=== PATIENT | female | born 2000 | race Caucasian/White ===

== ENCOUNTER 2021-10-19 10:34 | Emergency (ER) | payer OTHER, SELFPAY ==
--- NOTE | ~2021-10-19 | CT_ITS ---
EXAMINATION: CT abdomen pelvis w con DATE: 10/19/2021 12:08 INDICATION: Upper abdominal pain following endoscopy, colonoscopy and biopsy on 10/17/2021. TECHNIQUE: Computed tomography (CT) of the abdomen and pelvis was performed with 100 CC Omnipaque 300 intravenous contrast. Automated exposure control and iterative reconstruction technique were employe d. Exam dose: 176.53 mGy-cm total exam DLP. COMPARISON: None. FINDINGS: No consolidation at the lung bases. Normal heart size. No pericardial or pleural effusion. The gallbladder is contracted. No hepatic, splenic, pancreatic, and adrenal or renal space-occupying mass lesion is evident. No bile duct or pancreatic duct dilatation. No urinary tract calculus or hydroureteronephrosis. 2 cm right ovarian cyst. The uterus, adnexal areas and urinary bladder are otherwise unremarkable. No bowel obstruction or intraperitoneal free air. Normal caliber of the abdominal aorta. No intraperitoneal or retroperitoneal or pelvic mass lesion or adenopathy or ascites. Included skeletal structures are unremarkable. IMPRESSION: 2 cm right ovarian cyst No bowel obstruction or intraperitoneal free air Reviewed, dictated and finalized at [facility]. Reviewed, dictated and finalized at [facility].
[2021-10-19 10:37] VITALS: BP 113/80; PULSE 112; RESP 16; TEMP 37; O2SAT 98
[2021-10-19 11:35] LABS: Basophils Percent Auto 0.5 % (0.2-1.2); Eosinophils Absolute Auto 0.1 K/mm3 (0-0.3); Eosinophils Percent Auto 0.8 % (0-4.4); Hematocrit 44.2 % (37.0-47.0); Hemoglobin 14.9 g/dL (12.0-15.0); Immature Granulocyte Absolute 0.02 K/mm3 (0.00-0.031); Immature Granulocyte Percent A 0.3 % (0-0.5); Lymphocytes Absolute Auto 2.26 K/mm3 (0.9-3.2); Lymphocytes Percent Auto 30.3 % (18.3-44.2); Mean Corpuscular HGB Conc 33.7 g/dl (32-36); Mean Corpuscular Hemoglobin 31.4 pg (26-34); Mean Corpuscular Volume 93.2 fl (80-100); Mean Platelet Volume 9.6 fl (7.4-10.4); Monocytes Absolute Auto 0.6 K/mm3 (0.1-0.6); Monocytes Percent Auto 7.4 % (2.6-8.5); Neutrophils Absolute Auto 4.5 K/mm3 (1.3-6.7); Neutrophils Percent Auto 60.7 % (45.5-73.1); Platelet Count Result 256 k/mm3 (150-375); Red Blood Count 4.74 M/mm3 (4.2-5.4); Red Cell Distribution Width 12.6 % (11.5-14.5); White Blood Count 7.5 K/mm3 (4.5-10.0)
[2021-10-19 11:36] LABS: Appearance Urine Clear (Clear); Bilirubin Urine Negative (Negative); Blood Urine 2+ (Negative); Color Urine Yellow (Yellow); Glucose Urine UA Negative (Negative); Ketones Urine Negative (Negative); Leukocyte Esterase Ur Negative LEU/UL (Negative); Nitrate Urine Negative (Negative); Protein Urine Negative (Negative); Specific Grav Ur 1.015 (1.001-1.035); Urobilinogen Urine 0.2 mg/dL (<2.0)
[2021-10-19 11:41] LABS: Mucus Urine Rare /lpf; RBC Urine 0-2 /hpf (0-2); Squamous Epithelial Cell Urine Rare /hpf (Few)
[2021-10-19 11:42] LABS: Add Urine Microscopic? YES
--- NOTE | 2021-10-19 11:46 | ED.ABDPAIN ---
HPI - Abdominal Pain General Chief Complaint: Abdominal Pain Stated Complaint: Pain and nausea after biopsy Wednesday Time Seen by Provider: 10/19/21 11:15 History of Present Illness HPI narrative: Patient is a 21-year-old female with a history of ulcerative colitis, autoimmune hepatitis, who presents for evaluation of left upper quadrant abdominal pain past 2 days. Patient states that she had a routine annual endoscopy and colonoscopy with biopsy of stomach and ileum 2 days ago, which did not show any acute findings, awaiting for pathology reports. She states that her abdominal pain developed shortly afterwards, is present in her left upper quadrant, and is intermittent in nature. Her appetite has been normal, and she is eaten a full meal since the procedure. She has not had a bowel movement since the procedure. Denies nausea or vomiting, fevers, urinary changes. She does take 5 mg prednisone every other day for autoimmune hepatitis, but states that her GI specialist weaned her down to 2.5 mg every other day 2 days ago. She has not taken her steroid today. Patient obtains annual endoscopies for surveillance of her UC. Related Data Allergies Allergy/AdvReac Type Severity Reaction Status Date / Time venom-honey bee Allergy Unknown Unknown Verified 10/19/21 11:24 Review of Systems Review of Systems: Gen.: Denies fevers or chills Eyes: Denies eye pain or visual change ENT: Denies congestion Respiratory: Denies shortness of breath or cough CV: Denies chest pain or palpitations GI: Reports left upper quadrant abdominal pain. Denies nausea, emesis or diarrhea : denies burning, urgency, frequency or hematuria Musculoskeletal: Denies back pain or muscle pain Neuro: Denies numbness, tingling, weakness or focal weakness Skin: Denies rash Except as documented, all other systems reviewed and negative All systems reviewed & are unremarkable except as noted in HPI and below Exam Narrative: APPEARANCE: No acute distress, nontoxic, resting in bed, thin EYES: EOMI HEENT: Normocephalic, atraumatic, OMM RESPIRATORY: No respiratory distress Clear to auscultation bilaterally with no rhonchi wheezing or rales. CARDIOVASCULAR: Regular rate and rhythm without murmurs rubs or gallops. ABDOMINAL: Tender in the left upper quadrant. Soft, nondistended, no rebound or guarding MUSCULOSKELETAl: Moves all extremities. No clubbing, cyanosis or edema. NEURO: Awake and alert. Following commands, speech normal, no focal deficits SKIN: Warm, dry. No rashes lesions or abrasions PSYCHIATRIC: Normal affect/mood Course Vital Signs Vital signs: Vital Signs Temperature 98.6 F 10/19/21 10:37 Pulse Rate 112 H 10/19/21 10:37 Respiratory Rate 16 10/19/21 10:37 Blood Pressure 113/80 10/19/21 10:37 Pulse Oximetry 98 10/19/21 10:37 Temperature 98.6 F 10/19/21 10:37 Pulse Rate 74 10/19/21 14:15 Respiratory Rate 16 10/19/21 14:15 Blood Pressure 122/74 10/19/21 14:15 Pulse Oximetry 99 10/19/21 14:15 MDM - Abdominal Pain MDM Narrative Medical decision making narrative: 21-year-old female here with left upper quadrant pain after upper/lower endoscopy x 2 days ago. Vss; initially tachycardic, likely due to pain, resolved in ED stay. Tender in LUQ. Labs unremarkable; CT scan with evidence of ovarian cyst but no bowel perforation or obstruction. Pain improved after IV pepcid and 5 mg prednisone (previous home dose); patient ready to go home. Low suspicion for UC flare as patient states she has reportedly never had abdominal pain with flares in the past, and she is not having any stool changes. Spoke with patient's GI specialist who performed the endoscopy [facility], who agrees with plan for discharge; states this possibly is GERD. Advised patient get in contact tomorrow with her GI specialist, discussed strict return precautions with patient and she voiced understanding. Lab Data Result diagrams: 10/19/21 11:26 10/19/21 11:26
[2021-10-19 11:49] LABS: Alanine Aminotransferase 32 U/L (6-35); Albumin Level 4.7 g/dL (3.5-5.1); Alkaline Phosphatase 83 U/L (38-126); Anion Gap 9 mmol/L (8-16); Aspartate Amino Transferase 31 U/L (14-36); Bilirubin,Total 0.3 mg/dL (0.2-1.3); Blood Urea Nitrogen 7 mg/dL (7-17); Carbon Dioxide 23 mmol/L (22-30); Chloride 109 mmol/L (98-107); Estimated CRCL calculation 97 ml/min; Estimated Glomerular Filt Rate > 60; Glucose 99 mg/dL (65-110); Lipase 100 U/L (23-300); Potassium 3.8 mmol/L (3.4-5.0); Sodium 141 mmol/L (137-145)
[2021-10-19] MEDS: FAMOTIDINE 20 MG/2 ML VIAL IV PUSH (12:27)
[2021-10-19] MEDS: predniSONE 5 MG TABLET PO (13:17)
[2021-10-19 14:15] VITALS: BP 122/74; PULSE 74; RESP 16; O2SAT 99
== END 2021-10-19 14:39 | disposition home or self-care (01) ==
PROVIDERS: Emergency Provider Emergency Medicine; PCP Family Medicine
DX: R10.12 Left upper quadrant pain (principal); N83.201 Unspecified ovarian cyst, right side
CPT/HCPCS: 36415; 74177; 80053; 81001; 81025; 83690; 85025; 96374; 99284; J7512; Q9967

== ENCOUNTER 2022-01-03 14:48 | Emergency (ER) | payer OTHER, SELFPAY | END 2022-01-03 15:50 | disposition left against medical advice (07) | PROVIDERS: Emergency Provider Internal Medicine Hematology & Oncology; PCP Family Medicine | DX: Z53.21 Procedure and treatment not carried out due to patient leaving prior to being seen by health care provider (principal) | CPT/HCPCS: 99199 ==

== ENCOUNTER 2022-03-24 10:38 | Emergency (ER) | payer OTHER, SELFPAY ==
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
--- NOTE | ~2022-03-24 | CT_ITS ---
EXAMINATION: CT brain wo con INDICATION: Headache COMPARISON: None TECHNIQUE: Standard unenhanced head CT. The dose-length product (DLP) was 1059.33 mGy-cm. The mA was adjusted according to patient size. Iterative reconstruction technique was employed. FINDINGS: Motion artifact limits evaluation of the posterior fossa. There is no intracranial hemorrha ge, acute infarction, or abnormal mass lesion. The ventricles are normal. There is no abnormal mass e ffect or midline shift. The hathaway-white matter differentiation is normal. The basal cisterns are paten t. The orbits are normal. The paranasal sinuses, mastoids and calvarium are normal. IMPRESSION: 1. No acute intracranial abnormality. Reviewed, dictated and finalized at [facility].
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
[2022-03-24 11:04] VITALS: BP 162/78; PULSE 121; RESP 18; TEMP 36.7; O2SAT 99
[2022-03-24 11:29] VITALS: BP 109/72; PULSE 81; RESP 16; O2SAT 100
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
[2022-03-24] MEDS: ACETAMINOPHEN 325 MG TABLET 650 MG PO (13:21)
== END 2022-03-24 13:32 | disposition home or self-care (01) ==
PROVIDERS: Emergency Provider Emergency Medicine; PCP Family Medicine
DX: S16.1XXA Strain of muscle, fascia and tendon at neck level, initial encounter (principal); S09.90XA Unspecified injury of head, initial encounter; J43.9 Emphysema, unspecified; V49.40XA Driver injured in collision with unspecified motor vehicles in traffic accident, initial encounter
CPT/HCPCS: 70450; 72125; 72128; 73502; 81025; 99284; A9270

== ENCOUNTER 2023-12-14 09:45 | Emergency (ER) | payer OTHER, SELFPAY ==
--- NOTE | ~2023-12-14 | CT_ITS ---
CT abdomen pelvis w con Ordering provider: Andrews Bernstein APRN History: . upper abd. pain, hx of ulcerative colitis . Comparison: October 19, 2021 Technique: CT abdomen with IV and without oral contrast. Radiation reduction technique utilized. DLP is 180.92 mGy. 100 mL Omnipaque 350 was given IV. Findings: VISUALIZED LOWER CHEST: Normal. UPPER ABDOMINAL ORGANS: Liver: Normal parenchyma. Minimal periportal edema or slight dilatation of the intrahepatic ducts. Gallbladder: Thickened wall of the bladder with no stones. Evaluation for cholecystitis advised. Spleen: Normal. Stomach/duodenum: Normal. Pancreas: Normal. Adrenals: Normal. Kidneys: Normal. Urinary bladder: Underfilled. Uterus: Normal. right ovarian cyst measuring 2.3. Prominent left ovary . VISUALIZED BOWEL AND MESENTERY: No evidence of active ulcerative colitis seen. Minimal thickening in the descending colon and transverse colon wall is seen. No Evidence of diverticulitis. The bowel is o therwise normal. No free air or free fluid. No mesenteric lymphadenopathy. RETROPERITONEUM: Normal aorta. No retroperitoneal lymphadenopathy. MUSCULOSKELETAL: The superficial soft tissues are normal. Normal spine. IMPRESSION: Minimal intrahepatic biliary dilatation with no definite dilatation of the CBD. Edema in the periport al area is not excluded. Clinical correlation advised. Slightly thickened wall of the gallbladder which may indicate cholecystitis. Clinical evaluation advi sed. No evidence of active ulcerative colitis with slight thickening of the wall of the transverse and maine cending colon. Right ovarian cyst. Slightly prominent left ovary Reviewed, dictated and finalized at [facility]. IMPRESSION: Minimal intrahepatic biliary dilatation with no definite dilatation of the CBD. Edema in the periportal area is not excluded. Clinical correlation advised. Slightly thickened wall of the gallbladder which may indicate cholecystitis. Cl inical evaluation advised. No evidence of active ulcerative colitis with slight thickening of the wall of the transverse and descending colon. Right ovarian cyst. Slightly prominent left ovary
[2023-12-14 09:48] VITALS: BP 130/85; PULSE 128; RESP 20; TEMP 36.6; O2SAT 99
[2023-12-14] MEDS: SODIUM CHLORIDE 0.9% IV 1,000 ML 999 ML IV CONT (12:08)
[2023-12-14 12:23] LABS: Basophils Absolute Auto 0.1 K/mm3 (0.0-0.1); Basophils Percent Auto 0.5 % (0.2-1.2); Eosinophils Percent Auto 0.2 % (0-4.4); Hematocrit 41.8 % (37.0-47.0); Hemoglobin 14.5 g/dL (12.0-15.0); Immature Granulocyte Absolute 0.02 K/mm3 (0.00-0.031); Immature Granulocyte Percent A 0.2 % (0-0.5); Lymphocytes Absolute Auto 2.54 K/mm3 (0.9-3.2); Lymphocytes Percent Auto 27.1 % (18.3-44.2); Mean Corpuscular HGB Conc 34.7 g/dl (32-36); Mean Corpuscular Hemoglobin 32.1 pg (26-34); Mean Corpuscular Volume 92.5 fl (80-100); Mean Platelet Volume 9.9 fl (7.4-10.4); Monocytes Absolute Auto 0.8 K/mm3 (0.1-0.6); Monocytes Percent Auto 8.4 % (2.6-8.5); Neutrophils Percent Auto 63.6 % (45.5-73.1); Platelet Count Result 284 k/mm3 (150-375); Red Blood Count 4.52 M/mm3 (4.2-5.4); Red Cell Distribution Width 12.4 % (11.5-14.5); White Blood Count 9.4 K/mm3 (4.5-10.0)
--- NOTE | 2023-12-14 12:25 | ED.ABDPAIN ---
HPI - Abdominal Pain General Chief Complaint: Abdominal Pain Stated Complaint: abd pain Time Seen by Provider: 12/14/23 10:32 History of Present Illness HPI narrative: 21-year-old female with a history of Crohn's disease presents to the emergency room for evaluation of. For 3 days. Patient states he had onset of symptoms, develops nausea of multiple episodes of vomiting. Patient states that she saw of scant amounts of bright red blood in her emesis. Patient also reports dark blood in her stool, which is common with her Crohn's disease. Patient states she is able to maintain of food and fluids at this time. Denies back pain, denies fev Related Data Allergies Allergy/AdvReac Type Severity Reaction Status Date / Time venom-honey bee Allergy Unknown Unknown Verified 12/14/23 11:40 Review of Systems Review of Systems: ROS unremarkable except for n PMFSH Past Medical History Medical History History of hepatitis Social History Social History Smoking status: Never smoker Exam Narrative: GENERAL: Well-appearing, well-nourished, no physical limitations, and in no acute distress. HEAD: Normocephalic, atraumatic. EYES: Conjunctivae normal, PERRLA and EOMI. CHEST: Clear to auscultation. No respiratory distress. No wheezes rales or rhonchi. HEART: Regular rate and rhythm. No murmur heard. Normal peripheral pulses. ABDOMEN: Soft, periumbilical tenderness, nondistended, normal active bowel sounds. BACK: No CVA tenderness EXTREMITIES: Normal range of motion. No edema. No clubbing or cyanosis SKIN: Warm, dry, no rash. No noted wounds NEURO: No focal deficits. Alert and oriented x3. MAEW. CN's II-XI intact bilaterally, normal gait PSYCH: Cooperative. Normal mood and affect. Course Vital Signs Vital signs: Vital Signs Temperature 36.6 C 12/14/23 09:48 Pulse Rate 128 H 12/14/23 09:48 Respiratory Rate 20 12/14/23 09:48 Blood Pressure 130/85 12/14/23 09:48 Pulse Oximetry 99 12/14/23 09:48 Oxygen Delivery Room Air 07/09/24 09:48 Temperature 36.6 C 12/14/23 09:48 Pulse Rate 128 H 12/14/23 09:48 Respiratory Rate 20 12/14/23 09:48 Blood Pressure 130/85 12/14/23 09:48 Pulse Oximetry 99 12/14/23 09:48 Oxygen Delivery Room Air 12/14/23 09:48 MDM - Abdominal Pain MDM Narrative Medical decision making narrative: 21-year-old female history of ulcerative colitis present to the emergency room for evaluation of periumbilical abdominal pain, associated nausea vomiting diarrhea. Patient stated she had noticed some blood in her vomiting. Blood is likely due to Mindy-Gar tear. Lab work is unremarkable. No signs of anemia or infection. CT scan shows no acute intra-abdominal abnormalities. Urine showed positive for blood and bacteria. Will cover patient with 5 days of Macrobid. Lab Data 12/14/23 11:57 12/14/23 11:57 Labs: Lab Results 12/14/23 12/14/23 Range/Units 11:57 12:05 WBC 9.4 (4.5-10.0) K/mm3 RBC 4.52 (4.2-5.4) M/mm3 Hgb 14.5 (12.0-15.0) g/dL Hct 41.8 (37.0-47.0) % MCV 92.5 (80-100) fl MCH 32.1 (26-34) pg MCHC 34.7 (32-36) g/dl RDW 12.4 (11.5-14.5) % Plt Count 284 (150-375) k/mm3 MPV 9.9 (7.4-10.4) fl Immature Gran % (Auto) 0.2 (0-0.5) % Neut % (Auto) 63.6 (45.5-73.1) % Lymph % (Auto) 27.1 (18.3-44.2) % [place] % (Auto) 8.4 (2.6-8.5) % Eos % (Auto) 0.2 (0-4.4) % Baso % (Auto) 0.5 (0.2-1.2) % Lymph # (Auto) 2.54 (0.9-3.2) K/mm3 [place] # (Auto) 0.8 H (0.1-0.6) K/mm3 Eos # (Auto) 0.0 (0-0.3) K/mm3 Baso # (Auto) 0.1 (0.0-0.1) K/mm3 Abs Immat Gran (auto) 0.02 (0.00-0.031) K/mm3 Absolute Neuts (auto) 6.0 (1.3-6.7) K/mm3 Absolute Nucleated RBC 0.000 (0.0-0.012) K/mm3 Nucleated RBC % 0.0 (0.0-0.2) % ESR 8 (0-20) mm/hr Sodium
[2023-12-14 12:34] LABS: Alanine Aminotransferase 35 U/L (6-35); Albumin Level 4.7 g/dL (3.5-5.1); Alkaline Phosphatase 83 U/L (38-126); Anion Gap 10 mmol/L (4-12); Aspartate Amino Transferase 34 U/L (14-36); Bilirubin,Total 0.8 mg/dL (0.2-1.3); Blood Urea Nitrogen 10 mg/dL (7-17); CRP < 0.5 mg/dL (<1.0); Calcium 9.4 mg/dL (8.4-10.2); Carbon Dioxide 23 mmol/L (22-30); Chloride 107 mmol/L (98-107); Estimated CRCL calculation 98 ml/min; Estimated Glomerular Filt Rate > 60; Glucose 102 mg/dL (65-110); Lipase 87 U/L (23-300); Potassium 3.6 mmol/L (3.4-5.0); Sodium 140 mmol/L (137-145)
[2023-12-14 12:44] LABS: Appearance Urine Cloudy (Clear); Bacteria Urine None Seen /hpf; Bilirubin Urine Negative (Negative); Blood Urine 3+ (Negative); Color Urine Dark Yellow (Yellow); Glucose Urine UA Negative (Negative); Ketones Urine Trace mg/dL (Negative); Leukocyte Esterase Ur Trace LEU/UL (Negative); Need Manual Microscopic Reviewed; Nitrate Urine Negative (Negative); Non Pathogenic Casts 0-2; Protein Urine 1+ mg/dL (Negative); RBC Urine 51-100 /hpf (0-2); Specific Grav Ur 1.028 (1.001-1.035); Squamous Epithelial Cell Urine Few /hpf (Few); WBC Urine 0-5 /hpf (0-3); pH Urine 6.5 (5.0-9.0)
[2023-12-14 12:46] LABS: Add Urine Microscopic? YES
[2023-12-14 13:28] LABS: Erythrocyte Sedimentation Rate 8 mm/hr (0-20)
[2023-12-14 14:43] VITALS: BP 122/64; PULSE 84; RESP 16; O2SAT 99
== END 2023-12-14 14:43 | disposition home or self-care (01) ==
PROVIDERS: Emergency Provider Nurse Practitioner Family; PCP Family Medicine
DX: K52.9 Noninfective gastroenteritis and colitis, unspecified (principal); N39.0 Urinary tract infection, site not specified; K50.90 Crohn's disease, unspecified, without complications
CPT/HCPCS: 36415; 74177; 80053; 81001; 81025; 83690; 85025; 85652; 86140; 96360; 99284; J7030; Q9967